=== PATIENT | male | born 1970 | race African-American/Black ===

== ENCOUNTER 2021-12-28 13:35 | Emergency (ER) | payer BC, MEDICAID ==
[~2021-12-28] VITALS: Ht 185.4 cm; Wt 135.0 kg
[2021-12-28] MEDS ORDERED: ACETAMINOPHEN 325MG TABLET PO ONE (14:15)
[2021-12-28] MEDS ORDERED: ACETAMINOPHEN 325MG TABLET PO STA (19:46)
[2021-12-28] MEDS ORDERED: ONDANSETRON HCL 4MG/2ML INJ IV ONE (20:00)
[2021-12-28] MEDS ORDERED: KETOROLAC 15MG/ML VIAL IV ONE (20:00)
[2021-12-28] MEDS ORDERED: SODIUM CHLORIDE 0.9% 1,000 ML IV ONE (20:00)
[2021-12-28] MEDS ORDERED: ONDANSETRON HCL 4MG TABLET PO ONE (20:15)
[2021-12-28] MEDS ORDERED: KETOROLAC 15MG/ML VIAL IM ONE (20:15)
[2021-12-28 20:17] LABS: BASOPHILS % 0.6 % (0.0-2.0); HEMOGLOBIN. 14.7 g/dL (14.0-18.0); LYMPHOCYTES % 17.2 % (20.0-50.0); MEAN CORPUSCULAR HEMOGLOBIN 28.8 pg (28.0-32.0); MEAN CORPUSCULAR VOLUME 86.1 fL (80.0-94.0); MEAN PLATELET VOLUME 7.7 fl (7.4-10.4); MONOCYTES % 12.5 % (2.0-8.0); NEUTROPHILS % 69.7 % (40.0-76.0); PLATELET 200 x1000/uL (130-400); RED BLOOD CELL COUNT 5.11 mill/uL (4.7-6.1); RED CELL DISTRIBUTION WIDTH 16.8 % (11.6-14.6)
[2021-12-28 20:28] LABS: CHLORIDE 102 mEq/L (98-107)
[2021-12-28 23:10] VITALS: BP 136/84
== END 2021-12-28 23:10 | disposition home or self-care (01) ==
LOC: ER 13:35
DX: U07.1 COVID-19 (principal)
CPT/HCPCS: 36415; 71045; 80053; 83880; 84484; 85025; 87426; 93005; 96372; 99285; C9803; J1885; Q0162; J7030